=== PATIENT | male | born 1945 | race Two or more races ===

== ENCOUNTER 2019-07-12 16:01 | Inpatient (IN) | payer OTHER ==
[~2019-07-12] VITALS: Ht 180.3 cm; Wt 105.7 kg
[2019-07-18] MEDS ORDERED: JANUMET XR 50-1 EAC1 PO (12:49)
[2019-07-18] MEDS ORDERED: LIPITOR40 MG PO (12:50)
[2019-07-18] MEDS ORDERED: TARKA ER 2-2401 EACH PO (12:50)
[2019-07-18] MEDS ORDERED: CARVEDILOL25 MG PO (12:51)
[2019-07-18] MEDS ORDERED: HYDROCHLOROTHIAZIDE PO (12:52)
[2019-07-18] MEDS ORDERED: CARDURA XL4 MG PO (12:52)
[2019-07-18] MEDS ORDERED: HUM (12:53)
[2019-07-18] MEDS ORDERED: ECOTRIN81 MG PO (12:54)
[2019-07-18] MEDS ORDERED: JARDIANCE10 MG PO (12:54)
[2019-07-18] MEDS ORDERED: FAMOTIDINE20 MG PO (12:55)
[2019-07-18] MEDS ORDERED: BRILINTA (12:55)
[2019-07-18] MEDS ORDERED: IMIQUIMOD1 EACH (12:56)
[2019-07-18] MEDS ORDERED: MUPIROCIN22 GM TOP (12:57)
[2019-07-28] MEDS ORDERED: HYDROCHLOROTHIA25 MG PO (08:49)
[2019-07-28] MEDS ORDERED: BRILINTA90 MG PO (08:50)
[2019-07-28] MEDS ORDERED: HUMALOG MI100 UNIT/1 SQ (08:52)
[2019-08-01] MEDS ORDERED: OXYC1TAB9 PO (13:29)
[2019-08-01] MEDS ORDERED: INTESTINEX680 M1 PO (13:29)
== END 2019-08-01 14:19 | disposition home or self-care (01) | DRG 330 ==
LOC: SURG 07-18 10:15 → O/R 07-27 09:30 → SURG 07-27 10:15
PROVIDERS: ADMIT Surgery
PROC: 07TB4ZZ Resection of Mesenteric Lymphatic, Percutaneous Endoscopic Approach (ICD-10-PCS; 2019-07-27)
PROC: 4A033R1 Measurement of Arterial Saturation, Peripheral, Percutaneous Approach (ICD-10-PCS; 2019-07-27)
PROC: 4A12X4Z Monitoring of Cardiac Electrical Activity, External Approach (ICD-10-PCS; 2019-07-27)
PROC: 0DTF4ZZ Resection of Right Large Intestine, Percutaneous Endoscopic Approach (ICD-10-PCS; principal; 2019-07-27 17:45)
DX: C18.4 Malignant neoplasm of transverse colon (principal); I25.810 Atherosclerosis of coronary artery bypass graft(s) without angina pectoris; R19.4 Change in bowel habit; K29.00 Acute gastritis without bleeding; R59.0 Localized enlarged lymph nodes; I11.9 Hypertensive heart disease without heart failure; E11.65 Type 2 diabetes mellitus with hyperglycemia; E66.09 Other obesity due to excess calories; E78.00 Pure hypercholesterolemia, unspecified; G47.33 Obstructive sleep apnea (adult) (pediatric); Z79.4 Long term (current) use of insulin

== ENCOUNTER → 2019-07-18 | Outpatient (CLI) | payer OTHER ==
[~2019-07-18] MED LIST: BRILINTA; CARDURA XL4 MG PO; CARVEDILOL25 MG PO; ECOTRIN81 MG PO; FAMOTIDINE20 MG PO; HUM; HYDROCHLOROTHIAZIDE PO; IMIQUIMOD1 EACH; JANUMET XR 50-1 EAC1 PO; JARDIANCE10 MG PO; LIPITOR40 MG PO; MUPIROCIN22 GM TOP; TARKA ER 2-2401 EACH PO
== END | disposition home or self-care (01) ==
LOC: RAD 12:50
DX: C18.3 Malignant neoplasm of hepatic flexure (principal); R19.4 Change in bowel habit; R59.0 Localized enlarged lymph nodes; R97.0 Elevated carcinoembryonic antigen [CEA]